=== PATIENT | female | born 1945 | race Caucasian/White ===

== ENCOUNTER 2018-08-27 09:06 | Day surgery (SDC) | payer MEDICARE, BC, SELFPAY ==
[2018-08-13 14:28] VITALS: BMI 20.5
[2018-08-27] VITALS (8 sets, daily range): BP systolic 72–143; BP diastolic 49–91; PULSE 76–90; RESP 16; TEMP 36.2–36.7; O2SAT 95–100; BMI 20.7
[2018-08-27 10:11] LABS: Hemoglobin 13.5 g/dl (12.0-15.0); Mean Corp Hgb Conc 32.1 g/gl (32-36); Mean Corpuscular Hgb 30.5 pg (27.0-32.0); Mean Corpuscular Volume 94.8 fL (81-99); Mean Platelet Vol. 9.6 fl (6.2-12.0); Platelet Count 280 K/mm3 (150-450); RBC Distribution Width CV 13.4 % (11.6-14.6); RBC Distribution Width SD 46.4 fl (35.1-43.9); Red Blood Count 4.43 M/mm3 (4.2-5.4); White Blood Count 6.5 K/mm3 (4.4-11.0)
[2018-08-27 10:13] LABS: Scan Indicated on CBC? Y/N NO
--- NOTE | 2018-08-27 10:15 | EGD_PTH ---
PATIENT: MANASA SCHMITT LOC: EN U#:[id number] AGE/SX: 73/F ROOM: RE08/27/[address]: Dr. Luke Garcia MD : 1945 BED: DIS: 08/27/2018 SPEC #: [id number] RECD: 08/27/18 10:58 STATUS: TEENA SHAYNA #: [id number] LASHELL: 08/27/18 10:[address]: Luke Garcia DEPT: SURGICAL PATHOLOGY RECD BY: Ramos Franco ENTERED: 08/27/18 11:27 SP TYPE: EGD BIOPSY OTHR DR: Dr. Abdoulaye Ruiz MD Tissues: A - Gastric mucous membrane B - Esophageal mucous membrane C - Rectum, NOS Procedures: Surgery Specimen Level IV HEADER OPERATION: Colonoscopy, EGD (MOD) PRE-OP DIAGNOSIS: Positive Cologuard test; screening TISSUE SUBMITTED: A - Antral biopsy for H. pylori and pathology, B - Distal esophageal biopsies, C - Proximal rectal polyp MICROSCOPIC DIAGNOSIS A. Antral biopsy for H. pylori: Mild chronic antral gastritis. See comment. B. Distal esophageal biopsies: Squamous mucosa showing intraepithelial lymphocytes and mild basilar squamous hyperplasia. No glandular mucosa found. C. Proximal rectal polyp: Tubular adenoma. CE:jony 08/30/18 COMMENT A. The results of immunohistochemistry for Helicobacter pylori will be reported separately ([id number]). MICROSCOPIC DESCRIPTION Slides are reviewed. GROSS DESCRIPTION A - Received in fixative is one container labeled with the patient's name and designated antral biopsy. The specimen consists of one irregular fragment of light farias soft tissue that measures 0.6 x 0.2 x 0.1 cm. The specimen is totally submitted in one cassette. B - Received in fixative is one container labeled with the patient's name and designated distal esophagus and biopsy. The specimen consists of one irregular fragment of light farias soft tissue that measures 0.5 x 0.2 x 0.1 cm. The specimen is totally submitted in one cassette. C - Received in fixative is one container labeled with the patient's name and designated rectal biopsy. The specimen consists of one irregular fragment of light farias soft tissue that measures 0.5 x 0.3 x 0.1 cm. The specimen is totally submitted in one cassette. / AM:jony 08/27/18 TC:1 CPT: 39398 x3
--- NOTE | 2018-08-27 10:15 | IMM_PTH ---
PATIENT: MANASA SCHMITT LOC: EN U#:[id number] AGE/SX: 73/F ROOM: RE08/27/[address]: Dr. Luke Garcia MD : 1945 BED: DIS: 08/27/2018 SPEC #: [id number] RECD: 08/27/18 13:44 STATUS: TEENA REQ #: [id number] LASHELL: 08/27/18 10:[address]: Luke Garcia DEPT: IMMUNOHISTOCHEMISTRY RECD BY: Flory Colby ENTERED: 08/27/18 13:45 SP TYPE: IMMUNO OTHR DR: Dr. Abdoulaye Ruiz MD Tissues: A - Stomach, NOS Procedures: H Pylori (initial) PHYSICIAN & INSTITUTION [place] [id number] SPECIMEN INFORMATION: Tissue Source: A - Antral biopsy Clinical Info: Positive Cologuard test Specimen Number: [id number] CPT code: 59861 METHODOLOGY: Deparaffinized sections of prefer/formalin-fixed tissue or PAP/DQ stained slides are incubated with monoclonal/polyclonal antibodies/oligonucleotide probes. Localization is made via biotin free immunoperoxidase method. Appropriate controls are performed and reacted as expected. Results on target cell population are indicated in the following table: RESULTS: ANTIBODY / CLONE RESULT Block A H Pylori (polyclonal) negative These tests were developed and their performance characteristics determined by [facility]. They may not have been cleared or approved by the U.S. Food and Drug Administration. The FDA has determined that such clearance or approval is not necessary. INTERPRETATION: A. Antral biopsy: IHC with appropriate control is negative for Helicobacter organisms. CE:jony 08/30/18
--- NOTE | 2018-08-27 10:50 | OP.ENDO_ITS ---
Patient Name: Deborah Gomez Procedure Date: 08/27/2018 10:12 AM Date of : 1945 Age: 73 Procedure: Upper GI endoscopy Indications: Cologuard positive Providers: Luke Garcia MD Medicines: Midazolam 3 mg IV, Meperidine 75 mg IV Complications: No immediate complications. Procedure: Pre-Anesthesia Assessment: - Prior to the procedure, a History and Physical was performed, and patient medications and allergies were reviewed. The patient's tolerance of previous anesthesia was also reviewed. The risks and benefits of the procedure and the sedation options and risks were discussed with the patient. All questions were answered, and informed consent was obtained. Prior Anticoagulants: The patient has taken no previous anticoagulant or antiplatelet agents. ASA Grade Assessment: II - A patient with mild systemic disease. After reviewing the risks and benefits, the patient was deemed in satisfactory condition to undergo the procedure. After obtaining informed consent, the endoscope was passed under direct vision. Throughout the procedure, the patient's blood pressure, pulse, and oxygen saturations were monitored continuously. The gastroscope was introduced through the mouth, and advanced to the second part of duodenum. The upper GI endoscopy was accomplished without difficulty. The patient tolerated the procedure well. Moderate Sedation: Moderate (conscious) sedation was personally administered by the endoscopist. The following parameters were monitored: oxygen saturation, heart rate, blood pressure, and response to care. Total physician intraservice time was 14 minutes. Scope In: 10:20:23 AM Scope Out: 10:24:15 AM Total Procedure Duration Time 0 hours 3 minutes 52 seconds Findings: A small hiatal hernia was present. The Z-line was regular and was found 38 cm from the incisors. Biopsies were taken with a cold forceps for histology. Diffuse mildly erythematous mucosa without bleeding was found in the gastric antrum. Biopsies were taken with a cold forceps for histology. The examined duodenum was normal. Impression: - Small hiatal hernia. - Z-line regular, 38 cm from the incisors. Biopsied distal esophagus - Erythematous mucosa in the antrum. Biopsied. - Normal examined duodenum. No active bleeding. All findings were very mild. Recommendation: - Discharge patient to home. - Resume previous diet. - Telephone my office for pathology results in 1 week. - Continue present medications. Procedure Code(s): --- Professional --- 49456, Esophagogastroduodenoscopy, flexible, transoral; with biopsy, single or multiple 20873, 59, Moderate sedation services provided by the same physician or other qualified health health care facility administrator performing the diagnostic or therapeutic service that the sedation supports, requiring the presence of an independent trained observer to assist in the monitoring of the patient's level of consciousness and physiological status; initial 15 minutes of intraservice time, patient age 5 years or older Diagnosis Code(s): --- Professional --- K44.9, Diaphragmatic hernia without obstruction or gangrene K31.89, Other diseases of stomach and duodenum CPT copyright 2017 [employer]. All rights reserved. The codes documented in this report are preliminary and upon dictaphone operator review may be revised to meet current compliance requirements. Luke Garcia MD 08/27/2018 10:50:18 AM This report has been signed electronically. Number of Addenda: 0 Note Initiated On: 08/27/2018 10:12 AM
--- NOTE | 2018-08-27 10:54 | OP.ENDO_ITS ---
Patient Name: Deborah Gomez Procedure Date: 08/27/2018 10:26 AM Date of : 1945 Age: 73 Procedure: Colonoscopy Indications: Positive Cologuard test Providers: Luke Garcia MD Medicines: Midazolam 0.5 mg IV, Meperidine 25 mg IV Patient Profile: Last Colonoscopy: none. The patient's first colonoscopy is today. Complications: No immediate complications. Procedure: Pre-Anesthesia Assessment: - Prior to the procedure, a History and Physical was performed, and patient medications and allergies were reviewed. The patient's tolerance of previous anesthesia was also reviewed. The risks and benefits of the procedure and the sedation options and risks were discussed with the patient. All questions were answered, and informed consent was obtained. Prior Anticoagulants: The patient has taken no previous anticoagulant or antiplatelet agents. ASA Grade Assessment: II - A patient with mild systemic disease. After reviewing the risks and benefits, the patient was deemed in satisfactory condition to undergo the procedure. After I obtained informed consent, the scope was passed under direct vision. Throughout the procedure, the patient's blood pressure, pulse, and oxygen saturations were monitored continuously. The pediatric colonoscope was introduced through the anus and advanced to the cecum, identified by appendiceal orifice and ileocecal valve. The colonoscopy was performed without difficulty. The patient tolerated the procedure well. The quality of the bowel preparation was good. The ileocecal valve was photographed. Moderate Sedation: Moderate (conscious) sedation was personally administered by the endoscopist. The following parameters were monitored: oxygen saturation, heart rate, blood pressure, and response to care. Total physician intraservice time was 16 minutes. Scope In: 10:27:05 AM Scope Withdrawal Time 0 hours 9 minutes 25 seconds Scope Out: 10:44:13 AM Total Procedure Duration Time 0 hours 17 minutes 8 seconds Findings: Hemorrhoids were found on perianal exam. Scattered diverticula were found in the sigmoid colon. A 7 mm polyp was found in the rectum. The polyp was sessile. The polyp was removed with a hot snare. Resection and retrieval were complete. Impression: - Hemorrhoids found on perianal exam. - Diverticulosis in the sigmoid colon. - One 7 mm polyp in the rectum, removed with a hot snare. Resected and retrieved. Recommendation: - Discharge patient to home. - Resume previous diet. - Continue present medications. - Repeat colonoscopy in 5 years for surveillance. - Telephone my office for pathology results in 1 week. Procedure Code(s): --- Professional --- 66960, Colonoscopy, flexible; with removal of tumor(s), polyp(s), or other lesion(s) by snare technique 04171, 59, Moderate sedation services provided by the same physician or other qualified health animal care taker performing the diagnostic or therapeutic service that the sedation supports, requiring the presence of an independent trained observer to assist in the monitoring of the patient's level of consciousness and physiological status; initial 15 minutes of intraservice time, patient age 5 years or older Diagnosis Code(s): --- Professional --- K64.9, Unspecified hemorrhoids K62.1, Rectal polyp R19.5, Other fecal abnormalities K57.30, Diverticulosis of large intestine without perforation or abscess without bleeding CPT copyright 2017 [employer]. All rights reserved. The codes documented in this report are preliminary and upon furnace erector review may be revised to meet current compliance requirements. Luke Garcia MD 08/27/2018 10:54:06 AM This report has been signed electronically. Number of Addenda: 0 Note Initiated On: 08/27/2018 10:26 AM
== END 2018-08-27 12:04 | disposition home or self-care (01) ==
LOC: EN 09:07 → AC 09:08
PROVIDERS: Family Provider Family Medicine; PCP Family Medicine; Referring Provider Surgery; Visit Provider Surgery
PROC: 0DJD8ZZ Inspection of Lower Intestinal Tract, Via Natural or Artificial Opening Endoscopic (ICD-10-PCS; CPT 45378; principal; 2018-08-27 10:10)
DX: K29.50 Unspecified chronic gastritis without bleeding (principal); K44.9 Diaphragmatic hernia without obstruction or gangrene; K22.8 Other specified diseases of esophagus; D12.8 Benign neoplasm of rectum; K57.30 Diverticulosis of large intestine without perforation or abscess without bleeding; K64.9 Unspecified hemorrhoids; I10 Essential (primary) hypertension; M19.90 Unspecified osteoarthritis, unspecified site; Z79.899 Other long term (current) drug therapy
CPT/HCPCS: 43239; 45385; 85027; 88305; 88342; 99152; 99153; J7120

== ENCOUNTER 2024-03-21 08:36 | Day surgery (SDC) | payer MEDICARE, BC, SELFPAY ==
[2024-03-21] VITALS (9 sets, daily range): BP systolic 83–151; BP diastolic 42–76; PULSE 50–73; RESP 16; TEMP 36.3–36.9; O2SAT 96–100; BMI 18.6
--- NOTE | 2024-03-21 | COLBX_PTH ---
PATIENT: MANASA SCHMITT LOC: EN U#:[id number] AGE/SX: 79/F ROOM: RE03/21/[address]: Dr. Tomasa Ferguson MD : 1945 BED: DIS: 03/21/2024 SPEC #: [id number] RECD: 03/21/24 12:44 STATUS: TEENA REBelinda #: [id number] LASHELL: 03/21/24 00:[address]: Tomasa Ferguson DEPT: SURGICAL PATHOLOGY RECD BY: Mateo Shah ENTERED: 03/21/24 12:44 SP TYPE: COLON BX OTHR DR: Dr. Abdoulaye Ruiz MD Tissues: Cecum, NOS Procedures: Surgery Specimen Level IV HEADER OPERATION: Colonoscopy with polypectomy PRE-OP DIAGNOSIS: History of adenomatous polyp of colon TISSUE SUBMITTED: Cecum polyp, biopsy x2 MICROSCOPIC DIAGNOSIS Cecum polyp x2, biopsy/polypectomy: Fragments of tubular adenoma. See comment. CHRISTOPHE. 03/22/2024 COMMENT Increased number of intraepithelial lymphocytes are noted in the uninvolved portion of colonic mucosa, suspicious for lymphocytic (microscopic) colitis. Correlation with clinical, endoscopic findings and appropriate follow up are necessary. MICROSCOPIC DESCRIPTION Slides are reviewed. GROSS DESCRIPTION Received in fixative is one container labeled with the patient's name and designated Cecum polyp biopsy. The specimen consists of multiple irregular fragments of light farias soft tissue that in aggregate measure 1.5 x 0.5 x 0.1 cm. The specimen is totally submitted in one cassette. CHRISTOPHE/ 03/21/2024 TC:1 CPT:24178
--- NOTE | 2024-03-21 08:50 | PRE.ANES_ITS ---
ASA Classification* ASA Classification ASA Classification: 2 Assessment & Plan Anesthesia* Anesthesia Assessment Anesthesia Assessment: Discussed sedation and/or anesthesia options, risks, benefits, and alternatives with patient/parents/legal guardian/POA. Questions invited. The patient/parents/legal guardian/POA seems to understand and agrees to proceed with anesthesia plan. Reviewed the physical assessment, medical history, allergy history and patient home medications list prior to surgery/procedure/anesthetic and documented any changes. Performed airway and anesthesia risk assessments. 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 When Was Last Pacemaker Check QUESTION #4 FULL TEXT: You/Your Family Experience fever (hyperthermia) with Anesthesia Last Oral Intake Last Oral intake: Last Oral Intake NPO since Meds taken in AM with sips of water? Meds patient instructed to take am of surgery PONV PONV - field marketing associate: PONV - field marketing associate Female Yes 03/16/24 14:00 HX of Motion Sickness No 03/16/24 14:00 HX of N/V After Surgery No 03/16/24 14:00 Non-Smoker Yes 03/16/24 14:00 Duration of Surgery greater No 03/16/24 14:00 than 60 minutes Number of Risk Factors 2 03/16/24 14:00 PONV Score Moderate Risk 03/16/24 14:00 Height & Weight Height & Weight: Anesthesia: Height & Weight Height 5 ft 5 in 02/26/24 13:26 Respiratory Assessment Respiratory Assessment - field marketing associate: Respiratory Tract Infection Hx - field marketing associate Hx Respiratory Tract Infection No 03/16/24 14:00 STOP Sleep Apnea STOP Sleep Apnea - field marketing associate: STOP Sleep Apnea - field marketing associate Hx Hypertension Yes: CONTROLLED WITH MED 03/16/24 14:00 Hx Sleep Apnea No 03/16/24 14:00 CPAP BIPAP Do you snore loudly (louder No 03/16/24 14:00 than talking or can be heard Do you often feel tired/ No 03/16/24 14:00 fatigued/ sleepy during daytime? Has anyone observed you stop No 03/16/24 14:00 breathing during sleep? STOP Results Negative 03/16/24 14:00 QUESTION #5 FULL TEXT : Do you snore loudly (louder than talking or can be heard through closed doors)? Tobacco Use History Tobacco Use History - field marketing associate: Tobacco Use History - field marketing associate Tobacco Use Smoking Status Never smoker 03/16/24 14:00 Hx Tobacco Use No 03/16/24 14:00 Years Smoking Packs Smoked per Day Smoking Cessation Date was within the last 15 years Hx Smoking Cessation Date Hx Smoking Cessation Counseling Hematologic Medial History Hematologic Hx - field marketing associate: Hematologic Medical Hx - wrecker operator Hx of Blood Transfusion No 03/16/24 14:00 Hx of Transfusion in last 3 No 03/16/24 14:00 Months Date of Last Transfusion (if within last 3 months) Ever experience any problems No 03/16/24 14:00 with transfusion(s)? Specify any problems Hx of Preganancy in last 3 N/A 03/16/24 14:00 Months Nurse Filling Out Transfusion NBUCHER 03/16/24 14:00 & Questions: Date: 03/16/24 03/16/24 14:00 Time: 14:01 03/16/24 14:00 Patient unable to answer at this time (ie. confused, unrespo /Reproduction History /Reproductive History - field marketing associate: /Reproductive Hx- field marketing associate Hx Now Gestational Age (in weeks): EDC: Hx Hx Para Hx Section SAB Active Medications Active Medications: Current Medications Generic Name Dose Route Start Last Admin Trade Name Freq PRN Reason Stop Dose Admin Lactated Ringer's 1,000 mls @ 15 mls/hr 03/21/24 09:00 IV .Q48H SHAWN PFSH Medical History Wears glasses Arthritis Leg cramps Non-smoker Positive colorectal cancer screening using Cologuard test Positive colorectal cancer screening using Cologuard test Hypertension Home Medications ?Medication ?Instructions ?Recorded ?Last Taken ?Type lisinopril 10 mg tablet 10 mg PO DAILY 08/13/18 08/27/18 06:45 History calcium carbonate 600 mg PO DAILY 02/26/24 Unknown History [id number]-spjdzwcau-udv C-Mn 1 cap PO BID 02/26/24 Unknown History capsule (Glucosamine-Chondroitin Complex capsule) multivitamin (One-A-Day Essential 1 tab PO DAILY 02/26/24 Unknown History tablet) pyridoxine (vitamin B6) 100 mg 100 mg PO DAILY 02/26/24 Unknown History tablet (Vitamin B-6) Allergy/AdvReac Type Severity Reaction Status Date / Time No Known Allergies Allergy Verified 03/16/24 13:59 Family History Father Cancer prostate Sister Diabetes Cancer Brother Diabetes Hypertension Mother Hypertension CVA (cerebral vascular accident) Surgical History History of esophagogastroduodenoscopy (EGD) History of colonoscopy History of tubal ligation History of arthroscopy of right shoulder Social History Smoking Status: Never smoker alcohol intake: never substance use type: does not use Review of Systems (Anesthesia) ROS Narrative System reviewed and no additional complaints, except as documented.
--- NOTE | 2024-03-21 09:00 | PCM.HP.BLA ---
History and Physical Date of Admission: 03/21/24 Date of Service: 02/26/24 MR#: [id number] Acct: [id number] Name: MANASA SCHMITT Rep #: [id number] : 1945 Provider: Dr. Tomasa Ferguson MD Age/Sex: 78/F Location: [facility] Status: Signed Intake Vital Signs 08/27/1908:35 02/25/2413:26 Height 5 ft 5 in 5 ft 5 in Weight: 114 lb BMI 18.9 BP 150/71 H Blood Pressure Location Rt brachial Position Sitting Respiration 17 Pulse 78 Pulse Source Monitor Pulse Oximetry (%) 99 Oxygen Delivery Method room air Intake Visit Reasons: RECALL COLONOSCOPY Chief Complaint: recall colonoscopy Is patient in pain?: No Allergies No Known Allergies Allergy (Unverified 02/26/24 13:27) Medications ?Medication ?Instructions ?Recorded ?Confirmed ?Type lisinopril 10 mg tablet 10 mg PO DAILY 08/13/18 08/27/18 History calcium carbonate 600 mg PO DAILY 02/26/24 02/26/24 History bfmezjjdxme-jgehfiycq-mio C-Mn cap PO 02/26/24 02/26/24 History capsule (Glucosamine-Chondroitin Complex capsule) multivitamin (One-A-Day Essential 1 tab PO DAILY 02/26/24 02/26/24 History tablet) pyridoxine (vitamin B6) 100 mg 100 mg PO DAILY 02/26/24 02/26/24 History tablet (Vitamin B-6) Have you fallen in the past year?: No PFSH Medical History (Updated 02/26/24 @ 13:25 by Annie Moran) Positive colorectal cancer screening using Cologuard test Positive colorectal cancer screening using Cologuard test Hypertension Surgical History History of tubal ligation History of arthroscopy of right shoulder Family History (Updated 02/26/24 @ 13:26 by Annie Moran) Father Cancer prostateSister Diabetes CancerBrother Diabetes HypertensionMother Hypertension CVA (cerebral vascular accident) Social History (Updated 08/13/18 @ 16:[address] Luke Garcia MD) Smoking Status: Never smoker alcohol intake: never substance use type: does not use HPI HPI HPI: 78-year-old female presents for screening colonoscopy due to history of colon polyps. Patient last colonoscopy was 5 years (08/2018) ago by Dr. Garcia had a tubular adenoma that was removed. Patient states she has bowel moods daily denies any blood. Patient denies any family history of colon cancer. Patient denies any chronic abdominal pain/nausea/vomiting/reflux. ROS General General: No weight change, appetite, fatigue, colon cancer or breast cancer HEENT HEENT: No difficulty swallowing, eye injury, eye surgery, swollen glands or hoarseness Endo Endocrine: No thyroid disease, diabetes mellitus, thyroid cancer, Hair loss, heat intolerance or cold intolerance Skin Skin: No rash or changing moles Musc Musculoskeletal: No back problems, arthritis, rheumatoid arthritis, gout or joint pain Cardio Cardiovascular: Yes high blood pressure; No murmur, pacemaker, heart disease, atrial fibrillation, heart attack, heart stent, palpitations, shortness of breat with exertion or chest pain Psych Psychiatric: No depression, anxiety or hearing voices Resp Respiratory: No shortness of breath, No sleep apnea, No cough, No COPD, No asthma, No emphysema and No wheezing Gastro Gastrointestinal: No abdominal pain, No nausea or vomiting, No diarrhea, No constipation, No blood in stool, No acid reflux, No hemorrhoids, No ulcers, No gallbladder problem and No black,tarry stools Trevon Hematologic: No blood thinners, No blood disorders, No bleeding, No anemia and No blood clots Neuro Neurologic: No numbness and No tingling Exam Const General: cooperative, healthy appearing, comfortable and no acute distress HENNY Head: normocephalic and atraumatic Neck Neck: supple Resp Effort & Inspection: normal respiratory effort Cardio Rate: regular rate GI Inspection: non-distended Palpation: soft and nontender Skin General: no rashes or lesions noted Neuro General: CN's II-XI intact bilaterally Extrem General: normal to inspection Psych Mental Status: mental status grossly normal Attitude: cooperative Assessment and Plan Assessment and Plan (1) H/O adenomatous polyp of colon: Status: Acute Plan I have discussed the above with the patient. I have offered the patient colonoscopy for evaluation. I have explained the risks/benefits of the procedure and described the procedure. I have discussed the risks with the patient, including but not limited to: infection, bleeding, perforation of the GI tract requiring emergency surgery, inability to complete the procedure, injury to any internal organs, complications of anesthesia, etc. - the patient understands and agrees to proceed. I have answered all the patient's questions to the patient's satisfaction and the patient has no further questions. The patient has been given instructions for the colon cleansing preparation. 1 day of clears, MiraLAX Dulcolax prep. Tomasa Ferguson M.D. Pager: [phone] [facility] [address] [place] [address], [facility], [address] [place] [address] Office: [phone] Coding Level of Care Code Off vis,new,level 3 Diagnoses H/O adenomatous polyp of colon Z86.010 Clinical Quality Measures Falls Risk Screening/Assistive Devices Have you fallen in the past year?: No 02/26/24 1356 <Electronically signed by Tomasa Ferguson MD> Date Tomasa Ferguson MD
[2024-03-21] MEDS: Lactated Ringers 1,000 ML 15 ML IV ×2 (09:05→10:34)
--- NOTE | 2024-03-21 10:19 | OP.CCLET_ITS ---
03/21/2024 Abdoulaye Ruiz Re : Colonoscopy procedure for Deborah Ruiz This procedure was performed on Thursday, March 21, 2024. My impressions and recommendations are as follows: Impressions : - One less than 5 mm polyp in the cecum, removed with a cold biopsy forceps. Resected and retrieved. - One less than 5 mm polyp in the cecum, removed with a hot snare. Resected and retrieved. - The examination was otherwise normal. Recommendations : - Discharge patient to home. - Resume previous diet. - Continue present medications. - Await pathology results. - - Repeat colonoscopy in 5 years for surveillance based on pathology results--depending on overall health at that time. My findings are described in the full procedure note, which is enclosed. If I can be of further assistance, please feel free to contact me at Doctor phone number(s): , Work: . Sincerely, MD Tomasa Rizvi MD 03/21/2024 10:18:53 AM This report has been signed electronically.
--- NOTE | 2024-03-21 10:19 | OP.COLON_ITS ---
Patient Name: Deborah Gomez Procedure Date: 03/21/2024 9:37 AM Date of : 1945 Age: 79 Procedure: Colonoscopy Indications: High risk colon cancer surveillance: Personal history of colonic polyps Providers: Tomasa Ferguson MD Medicines: Monitored Anesthesia Care Patient Profile: This is a 79 year old female. Last Colonoscopy: January 2019. Complications: No immediate complications. Procedure: Pre-Anesthesia Assessment: - Prior to the procedure, a History and Physical was performed, and patient medications and allergies were reviewed. The patient's tolerance of previous anesthesia was also reviewed. The risks and benefits of the procedure and the sedation options and risks were discussed with the patient. All questions were answered, and informed consent was obtained. Prior Anticoagulants: The patient has taken no anticoagulant or antiplatelet agents. ASA Grade Assessment: Per anesthesia. After reviewing the risks and benefits, the patient was deemed in satisfactory condition to undergo the procedure. After I obtained informed consent, the scope was passed under direct vision. Throughout the procedure, the patient's blood pressure, pulse, and oxygen saturations were monitored continuously. The Colonoscope was introduced through the anus and advanced to the cecum, identified by the appendiceal orifice, ileocecal valve and palpation. The colonoscopy was technically difficult and complex due to a tortuous colon. The patient tolerated the procedure well. The quality of the bowel preparation was good. Scope In: 9:43:38 AM Scope Withdrawal Time 0 hours 17 minutes 13 seconds Scope Out: 10:13:14 AM Total Procedure Duration Time 0 hours 29 minutes 36 seconds Findings: The perianal and digital rectal examinations were normal. A less than 5 mm polyp was found in the cecum. The polyp was semi-pedunculated. The polyp was removed with a cold biopsy forceps. Resection and retrieval were complete. A less than 5 mm polyp was found in the cecum. The polyp was sessile. The polyp was removed with a hot snare. Resection and retrieval were complete. The exam was otherwise without abnormality. Impression: - One less than 5 mm polyp in the cecum, removed with a cold biopsy forceps. Resected and retrieved. - One less than 5 mm polyp in the cecum, removed with a hot snare. Resected and retrieved. - The examination was otherwise normal. Recommendation: - Discharge patient to home. - Resume previous diet. - Continue present medications. - Await pathology results. - - Repeat colonoscopy in 5 years for surveillance based on pathology results--depending on overall health at that time. Procedure Code(s): --- Professional --- 55583, PT, Colonoscopy, flexible; with removal of tumor(s), polyp(s), or other lesion(s) by snare technique 40380, 59, Colonoscopy, flexible; with biopsy, single or multiple Diagnosis Code(s): --- Professional --- Z86.010, Personal history of colonic polyps D12.0, Benign neoplasm of cecum CPT copyright 2021 [employer] [place] [employer] [employer]. All rights reserved. The codes documented in this report are preliminary and upon customer contact sales associate review may be revised to meet current compliance requirements. MD Tomasa Rizvi MD 03/21/2024 10:18:53 AM This report has been signed electronically. Number of Addenda: 0 Note Initiated On: 03/21/2024 9:37 AM
--- NOTE | 2024-03-21 10:23 | PCM.POST.ANE ---
Anesthesia: Postop Eval I Current Vital Signs Temperature: 98.4 F Pulse Rate: 66 Blood Pressure: 97/46 Respiratory Rate: 16 Pulse Ox: 97 Oxygen Delivery Method: Room Air Assessment Airway patent: Yes Spontaneous unlabored respirations: Yes Mental status: Asleep nausea: No Vomiting: No Anesthesia Complication: No Fluid Hydration Crystalloid volume administer (ml): 600 Total IV fluid infused: 600 Progress Note Anesthesia document: Postop Eval 1 completed: Yes
--- NOTE | 2024-03-21 10:30 | PCM.POSTANE2 ---
Anesthesia Postop Eval I Sum Postop Eval Completion status Anesthesia document: Postop Eval 1 completed: Yes Anesthesia Postop Eval I Summary Anesthesia Postop Eval I Summary: Anesthesia Postop Eval I: Assessment Summary Airway patent Yes 03/21/24 10:24 [email or web address] Spontaneous unlabored Yes 03/21/24 10:24 [email or web address] respirations Mental status Asleep 03/21/24 10:24 [email or web address] nausea No 03/21/24 10:24 [email or web address] Vomiting No 03/21/24 10:24 [email or web address] Anesthesia Postop Eval I: Fluid Summary Crystalloid volume administer 600 03/21/24 10:24 [email or web address] (ml) Colloids volume administered ( ml) Blood Product volume administered (ml) Total IV fluid infused 600 03/21/24 10:24 [email or web address] Anesthesia Postop Eval I: Summary Notes Anesthesia Complication No 03/21/24 10:24 [email or web address] Anesthesia Complication Comment: Post-operative progress note Anesthesia: Postop Eval II Evaluation Mental status: Awake Pain Level: 0 nausea: No Vomiting: No
== END 2024-03-21 11:16 | disposition home or self-care (01) ==
LOC: EN 08:42 → AC 08:44
PROVIDERS: PCP Family Medicine; Referring Provider Family Medicine; Visit Provider Surgery
PROC: 0DJD8ZZ Inspection of Lower Intestinal Tract, Via Natural or Artificial Opening Endoscopic (ICD-10-PCS; CPT 45378; principal; 2024-03-21 09:55)
DX: Z12.11 Encounter for screening for malignant neoplasm of colon (principal); K63.5 Polyp of colon; Z86.010 Personal history of colon polyps; I10 Essential (primary) hypertension; Z79.899 Other long term (current) drug therapy
CPT/HCPCS: 45385; 45380; 88305; J7120; J2405